=== PATIENT | male | born 1965 ===

== ENCOUNTER 2022-02-22 14:51 | Emergency (ER) | payer OTHER | END 2022-02-22 15:17 | disposition E | LOC: ER1 14:51 → EDBD 14:51 → ER1 15:17 | DX: I46.9 Cardiac arrest, cause unspecified (principal); E11.9 Type 2 diabetes mellitus without complications; I10 Essential (primary) hypertension; Z95.1 Presence of aortocoronary bypass graft | CPT/HCPCS: 92950; 93005; 99285; J0171 ==